=== PATIENT | male | born 1970 | race African-American/Black ===

== ENCOUNTER 2017-08-14 00:24 | Inpatient (IN) ==
[2017-08-14 02:07] LABS: Basophils % 0.3 % (0.0-0.8); Eosinophils # 0.1 10*3/uL (0.0-0.87); Eosinophils % 1.7 % (0.00-10.9); Hematocrit 28.5 VOL% (42.0-52.0); Hemoglobin 9.4 GM/DL (14.0-18.0); Immature Granulocytes % 0.3 %; Immature Granulocytes Absolute 0.02 #; Lymphocytes % 42.9 % (21.2-54.2); Mean Corpuscular Hemoglobin 26 PG (27-34); Mean Corpuscular Volume 78.3 FL (87-102); Mean Platelet Volume 10.2 FL (9.6-12.0); Monocytes # 0.5 10*3/uL (0.11-0.8); Monocytes % 7.4 % (1.7-12.7); Neutrophils # 3.3 10*3/uL (1.4-7.4); Neutrophils % 47.4 % (38.7-73.9); Platelet Count 265 T/CUMM (130-400); Red Blood Count 3.64 MC/CUMM (3.8-5.5); Red Cell Distribution Width 13.2 % (9.3-17.3)
[2017-08-14 02:32] LABS: Albumin 2.8 G/DL (3.4-5.0); Bilirubin,Total 0.7 MG/DL (0.2-1.0); Calcium 8.2 MG/DL (8.5-10.1); Potassium 3.5 MMOL/L (3.5-5.1)
[2017-08-14 02:34] LABS: Apearance,Urine CLEAR (Clear); Bilirubin,Urine Negative (Negative); Blood, Urine Small mg/dL (Negative); Glucose,Urine (UA) 50 mg/dL (Negative); Hyaline Casts,Urine 1 /LPF (0-3); Ketones,Urine Negative (Negative); Nitrite,Urine Negative (Negative); Protein,Urine >=500 MG/DL; RBC,Urine 4 /HPF (0-4); Squamous Epithelial Cell,Urine Occasional /HPF (0-10); Urine Color Yellow (Yellow); WBC,Urine 1 /HPF (0-6)
[2017-08-14] MEDS ORDERED: ASPIRIN CHEW 81 MG TABLET PO STA (02:38)
[2017-08-14] MEDS ORDERED: FUROSEMIDE 40 MG/4 ML VIAL IV STA (02:39)
[2017-08-14] MEDS ORDERED: DEXTROSE 50% 25 GM/50 ML VIAL IV PRN (06:29)
[2017-08-14] MEDS ORDERED: ONDANSETRON 4 MG/2 ML VIAL IV PRN (06:29)
[2017-08-14] MEDS ORDERED: MORPHINE 4 MG/1 ML VIAL IV PRN (06:29)
[2017-08-14] MEDS ORDERED: GLUCAGON 1 MG VIAL IM PRN (06:29)
[2017-08-14] MEDS ORDERED: traZODone 50 MG TABLET PO PRN (06:29)
[2017-08-14] MEDS ORDERED: NITROGLYCERIN SL 0.4 MG TABLET SL PRN (06:29)
[2017-08-14] MEDS: INSULIN REGULAR 100 UNIT/ML SUBCUT SCH ×4 (07:23→21:09)
[2017-08-14] MEDS: ENOXAPARIN 40 MG/0.4 ML SYRINGE SUBCUT SCH (07:35)
[2017-08-14 07:59] LABS: Risk Ratio 3.9; VLDL CHOLESTEROL 47.4 MG/DL
[2017-08-14] MEDS ORDERED: GLIMEPIRIDE 2 MG TABLET PO SCH ×2 (08:00→09:00)
[2017-08-14] MEDS ORDERED: FISH OIL PO SCH (09:00)
[2017-08-14] MEDS ORDERED: DHA PO SCH (09:00)
[2017-08-14] MEDS ORDERED: OMEGA PO SCH (09:00)
[2017-08-14] MEDS ORDERED: metFORMIN 500 MG TABLET PO SCH (09:00)
[2017-08-14] MEDS ORDERED: EPA PO SCH (09:00)
[2017-08-14] MEDS: GLIMEPIRIDE 4 MG TABLET PO SCH ×2 (09:02→16:25)
[2017-08-14] MEDS: ALLOPURINOL 300 MG TABLET PO SCH (09:03)
[2017-08-14] MEDS: CARVEDILOL 3.125 MG TABLET PO SCH ×2 (09:03→21:09)
[2017-08-14] MEDS: FUROSEMIDE 40 MG TABLET PO SCH (09:03)
[2017-08-14] MEDS: ASPIRIN EC 81 MG TABLET PO SCH (09:03)
[2017-08-14] MEDS: SIMVASTATIN 40 MG TABLET PO SCH (09:03)
[2017-08-14] MEDS: metFORMIN 500 MG TABLET PO SCH ×2 (09:04→16:24)
[2017-08-14] MEDS: DOCUSATE SODIUM 100 MG CAPSULE PO SCH ×2 (09:04→21:09)
[2017-08-14] MEDS: VALSARTAN 160 MG TABLET PO SCH (09:05)
[2017-08-14] MEDS: PANTOPRAZOLE 40 MG TABLET PO SCH (09:05)
[2017-08-14] MEDS: amLODIPine 5 MG TABLET PO SCH (16:25)
[2017-08-15] MEDS: ENOXAPARIN 40 MG/0.4 ML SYRINGE SUBCUT SCH (05:38)
[2017-08-15 07:42] LABS: Basophils % 0.4 % (0.0-0.8); Eosinophils # 0.1 10*3/uL (0.0-0.87); Eosinophils % 2.2 % (0.00-10.9); Hematocrit 33.9 VOL% (42.0-52.0); Hemoglobin 11.4 GM/DL (14.0-18.0); Immature Granulocytes % 0.2 %; Immature Granulocytes Absolute 0.01 #; Lymphocytes # 2.4 10*3/uL (1.4-4.0); Lymphocytes % 47.7 % (21.2-54.2); Mean Corpuscular HGB Conc 33.6 GM/DL (32-36); Mean Corpuscular Hemoglobin 26 PG (27-34); Mean Corpuscular Volume 76.5 FL (87-102); Mean Platelet Volume 10.6 FL (9.6-12.0); Monocytes # 0.5 10*3/uL (0.11-0.8); Monocytes % 9.6 % (1.7-12.7); NRBC # 0.02 10*3/uL; Neutrophils % 39.9 % (38.7-73.9); Platelet Count 254 T/CUMM (130-400); Red Blood Count 4.43 MC/CUMM (3.8-5.5); Red Cell Distribution Width 13.3 % (9.3-17.3); White Blood Count 5.1 T/CUMM (4-12)
[2017-08-15 08:09] LABS: Calcium 8.4 MG/DL (8.5-10.1); Osmolality,Calculated 287.8 MOS/KG (273-304)
[2017-08-15] MEDS: INSULIN REGULAR 100 UNIT/ML SUBCUT SCH ×4 (09:19→21:40)
[2017-08-15] MEDS: ASPIRIN EC 81 MG TABLET PO SCH (09:20)
[2017-08-15] MEDS: CARVEDILOL 3.125 MG TABLET PO SCH (09:20)
[2017-08-15] MEDS: FUROSEMIDE 40 MG TABLET PO SCH (09:20)
[2017-08-15] MEDS: amLODIPine 5 MG TABLET PO SCH (09:20)
[2017-08-15] MEDS: DOCUSATE SODIUM 100 MG CAPSULE PO SCH ×2 (09:20→22:17)
[2017-08-15] MEDS: ALLOPURINOL 300 MG TABLET PO SCH (09:20)
[2017-08-15] MEDS: PANTOPRAZOLE 40 MG TABLET PO SCH (09:20)
[2017-08-15] MEDS: GLIMEPIRIDE 4 MG TABLET PO SCH ×2 (09:20→16:48)
[2017-08-15] MEDS: SIMVASTATIN 40 MG TABLET PO SCH (09:20)
[2017-08-15] MEDS: VALSARTAN 160 MG TABLET PO SCH (09:20)
[2017-08-15] MEDS: metFORMIN 500 MG TABLET PO SCH ×2 (09:21→16:48)
[2017-08-15] MEDS ORDERED: MAGNESIUM SULF RIDER 4 GM in PREMIX 1 EACH IV PRN (13:21)
[2017-08-15] MEDS: MAGNESIUM SULF RIDER 2 GM in PREMIX 1 EACH IV PRN ×2 (13:54→16:23)
[2017-08-15] MEDS: CARVEDILOL 6.25 MG TABLET PO SCH (21:40)
[2017-08-16 06:08] LABS: Basophils % 0.4 % (0.0-0.8); Eosinophils # 0.1 10*3/uL (0.0-0.87); Eosinophils % 2.2 % (0.00-10.9); Hematocrit 34.8 VOL% (42.0-52.0); Hemoglobin 11.4 GM/DL (14.0-18.0); Immature Granulocytes % 0.2 %; Immature Granulocytes Absolute 0.01 #; Lymphocytes # 2.8 10*3/uL (1.4-4.0); Lymphocytes % 50.9 % (21.2-54.2); Mean Corpuscular HGB Conc 32.8 GM/DL (32-36); Mean Corpuscular Hemoglobin 25 PG (27-34); Mean Corpuscular Volume 77.7 FL (87-102); Mean Platelet Volume 9.7 FL (9.6-12.0); Monocytes # 0.5 10*3/uL (0.11-0.8); Neutrophils % 37.3 % (38.7-73.9); Platelet Count 256 T/CUMM (130-400); Red Blood Count 4.48 MC/CUMM (3.8-5.5); Red Cell Distribution Width 13.2 % (9.3-17.3); White Blood Count 5.4 T/CUMM (4-12)
[2017-08-16 06:31] LABS: Hypochromasia 1+; Microcytosis 1+
[2017-08-16 06:32] LABS: Platelet Estimate Normal
[2017-08-16 06:45] LABS: Calcium 8.7 MG/DL (8.5-10.1); Osmolality,Calculated 281.3 MOS/KG (273-304); Potassium 3.6 MMOL/L (3.5-5.1)
[2017-08-16] MEDS: ENOXAPARIN 40 MG/0.4 ML SYRINGE SUBCUT SCH (07:04)
[2017-08-16] MEDS ORDERED: VALSARTAN/HCTZ 160-12.5 MG TABLET PO SCH (09:00)
[2017-08-16] MEDS: ALLOPURINOL 300 MG TABLET PO SCH (09:11)
[2017-08-16] MEDS: SIMVASTATIN 40 MG TABLET PO SCH (09:11)
[2017-08-16] MEDS: ASPIRIN EC 81 MG TABLET PO SCH (09:11)
[2017-08-16] MEDS: PANTOPRAZOLE 40 MG TABLET PO SCH (09:11)
[2017-08-16] MEDS: metFORMIN 500 MG TABLET PO SCH (09:11)
[2017-08-16] MEDS: amLODIPine 5 MG TABLET PO SCH (09:11)
[2017-08-16] MEDS: FUROSEMIDE 40 MG TABLET PO SCH (09:11)
[2017-08-16] MEDS: GLIMEPIRIDE 4 MG TABLET PO SCH (09:11)
[2017-08-16] MEDS: DOCUSATE SODIUM 100 MG CAPSULE PO SCH (09:11)
[2017-08-16] MEDS: INSULIN REGULAR 100 UNIT/ML SUBCUT SCH ×2 (09:12→12:49)
[2017-08-16] MEDS: CARVEDILOL 6.25 MG TABLET PO SCH (09:12)
[2017-08-16] MEDS: MAGNESIUM SULF RIDER 2 GM in PREMIX 1 EACH IV PRN (09:14)
[2017-08-16 09:59] VITALS: BP 130/81
== END 2017-08-16 13:03 | disposition home or self-care (01) | DRG 293 ==
LOC: N.ED 00:24 → N.EDINP 03:36 → SUATTDRO 03:36 → N.5E 05:05
PROVIDERS: ADMIT Emergency Medicine; ATTEND Internal Medicine

== ENCOUNTER 2021-01-13 06:07 | Observation (INO) ==
[2021-01-13] MEDS ORDERED: INFLUENZA VIRUS VACCINE 0.5 ML SYRINGE IM ONE (08:47)
[2021-01-13] MEDS ORDERED: ACETAMINOPHEN 325 MG TABLET PO PRN (10:00)
[2021-01-13] MEDS ORDERED: DEXTROSE 50% 25 GM/50 ML VIAL IV PRN ×2 (10:00)
[2021-01-13] MEDS ORDERED: GLUCAGON 1 MG VIAL IM PRN (10:00)
[2021-01-13] MEDS ORDERED: hydrALAZINE 20 MG/1 ML VIAL IV PRN (10:00)
[2021-01-13] MEDS ORDERED: ONDANSETRON 4 MG/2 ML VIAL IV PRN (10:00)
[2021-01-13] MEDS ORDERED: PANTOPRAZOLE 40 MG TABLET PO SCH (10:30)
[2021-01-13 10:31] LABS: Basophils % 0.2 % (0.0-0.8); Eosinophils # 0.1 10*3/uL (0.0-0.87); Eosinophils % 2.2 % (0.00-10.9); Hematocrit 37.1 VOL% (42.0-52.0); Immature Granulocytes % 0.4 %; Immature Granulocytes Absolute 0.02 #; Lymphocytes # 1.9 10*3/uL (1.4-4.0); Lymphocytes % 37.4 % (21.2-54.2); Mean Corpuscular HGB Conc 32.3 GM/DL (32-36); Mean Corpuscular Volume 77.3 FL (87-102); Mean Platelet Volume 10.5 FL (9.6-12.0); Monocytes % 5.5 % (1.7-12.7); Neutrophils % 54.3 % (38.7-73.9); Platelet Count 173 T/CUMM (130-400); Red Cell Distribution Width 13.8 % (9.3-17.3)
[2021-01-13] MEDS: PNEUMOCOCCAL VACCINE (23 VALENT) 0.5 ML VIAL IM ONE ×2 (10:40→16:22)
[2021-01-13 11:08] LABS: Albumin 2.6 G/DL (3.4-5.0); Bilirubin,Total 1.2 MG/DL (0.20-1.00); Calcium 8.7 MG/DL (8.5-10.1); Osmolality,Calculated 288.1 MOS/KG (273-304); Potassium 4.3 MMOL/L (3.5-5.1); Total Protein 6.2 G/DL (6.4-8.2)
[2021-01-13] MEDS: INSULIN LISPRO 100 UNIT/ML SUBCUT SCH ×3 (12:19→21:34)
[2021-01-13] MEDS: ENOXAPARIN 40 MG/0.4 ML SYRINGE SUBCUT SCH (12:19)
[2021-01-13 12:52] LABS: Bilirubin,Urine Negative (Negative); Blood, Urine Small mg/dL (Negative); Glucose,Urine (UA) 150 mg/dL (Negative); Hyaline Casts,Urine 3 /LPF (0-3); Ketones,Urine Negative (Negative); Mucus,Urine Occasional /LPF (Occasional); Nitrite,Urine Negative (Negative); Protein,Urine >=500 MG/DL; RBC,Urine 4 /HPF (0-4); Urine Appearance CLEAR (Clear); Urine Color Straw (Yellow); Urine Urobilinogen < 2.0 EU/DL (0.2-1.0)
[2021-01-13] MEDS ORDERED: MAGNESIUM SULF RIDER 2 GM/50 ML PREMIX IV PRN (16:40)
[2021-01-13] MEDS ORDERED: MAGNESIUM SULF RIDER 4 GM/100 ML PREMIX IV PRN (16:40)
[2021-01-13] MEDS ORDERED: NITROGLYCERIN SL 0.4 MG TABLET SL PRN (16:48)
[2021-01-13] MEDS ORDERED: ONDANSETRON 4 MG TABLET PO PRN (16:48)
[2021-01-13] MEDS ORDERED: CYCLOBENZAPRINE 10 MG TABLET PO PRN (16:48)
[2021-01-13] MEDS: SACUBITRIL/VALSARTAN 49-51 MG TABLET PO SCH (21:33)
[2021-01-13] MEDS: OMEGA 3 ACID ETHYL ESTERS 1 GM CAPSULE PO SCH (21:33)
[2021-01-13] MEDS: carvediloL 12.5 MG TABLET PO SCH (21:34)
[2021-01-14 06:43] LABS: Basophils % 0.4 % (0.0-0.8); Eosinophils # 0.1 10*3/uL (0.0-0.87); Eosinophils % 2.4 % (0.00-10.9); Hematocrit 35.4 VOL% (42.0-52.0); Hemoglobin 11.7 GM/DL (14.0-18.0); Immature Granulocytes % 0.2 %; Immature Granulocytes Absolute 0.01 #; Lymphocytes # 2.1 10*3/uL (1.4-4.0); Lymphocytes % 42.2 % (21.2-54.2); Mean Corpuscular HGB Conc 33.1 GM/DL (32-36); Mean Corpuscular Volume 77.3 FL (87-102); Mean Platelet Volume 10.8 FL (9.6-12.0); Monocytes % 7.1 % (1.7-12.7); Neutrophils % 47.7 % (38.7-73.9); Platelet Count 176 T/CUMM (130-400); Red Blood Count 4.58 MC/CUMM (3.8-5.5); Red Cell Distribution Width 13.6 % (9.3-17.3); White Blood Count 5.1 T/CUMM (4-12)
[2021-01-14 07:18] LABS: Albumin 2.3 G/DL (3.4-5.0); Bilirubin,Total 1.4 MG/DL (0.20-1.00); Calcium 9.4 MG/DL (8.5-10.1); Osmolality,Calculated 286.4 MOS/KG (273-304); Potassium 3.6 MMOL/L (3.5-5.1); Risk Ratio 4.77; Thyroid Stimulating Hormone 2.8 uIU/ml (0.358-3.74); Total Protein 6.2 G/DL (6.4-8.2); VLDL Cholesterol 65.2 MG/DL
[2021-01-14 08:16] VITALS: BP 155/85
[2021-01-14] MEDS: carvediloL 12.5 MG TABLET PO SCH (08:55)
[2021-01-14] MEDS: OMEGA 3 ACID ETHYL ESTERS 1 GM CAPSULE PO SCH (08:55)
[2021-01-14] MEDS ORDERED: allopurinoL 100 MG TABLET PO SCH (09:00)
[2021-01-14] MEDS ORDERED: ATORVASTATIN 40 MG TABLET PO SCH (09:00)
[2021-01-14] MEDS ORDERED: FAMOTIDINE 20 MG TABLET PO SCH (09:00)
[2021-01-14] MEDS ORDERED: CHOLECALCIFEROL 1,000 UNIT TABLET PO SCH (09:00)
[2021-01-14] MEDS ORDERED: COLCHICINE 0.6 MG CAPSULE PO SCH (09:00)
[2021-01-14] MEDS ORDERED: ASPIRIN EC 81 MG TABLET PO SCH (09:00)
[2021-01-14] MEDS: SACUBITRIL/VALSARTAN 49-51 MG TABLET PO SCH (09:12)
[2021-01-14] MEDS: INSULIN LISPRO 100 UNIT/ML SUBCUT SCH ×2 (09:13→12:07)
[2021-01-14] MEDS: ENOXAPARIN 40 MG/0.4 ML SYRINGE SUBCUT SCH (11:07)
== END 2021-01-14 12:18 | disposition home or self-care (01) ==
LOC: SUATTDRO 07:59 → N.TELES 07:59 → INTOOBSV 07:59
PROVIDERS: ADMIT Internal Medicine; ATTEND Internal Medicine